=== PATIENT | male | born 1960 ===

== ENCOUNTER 2016-09-30 17:54 | Emergency (ER) | payer SELFPAY ==
[2016-09-30 18:02] VITALS: TEMP 98.5
[2016-09-30] MEDS ORDERED: Oxycodone/Acetaminophen 5/325 mg Tab PO STA (19:13)
[2016-09-30] MEDS ORDERED: Oxycodone/Acetaminophen 5/325 mg Tab ONE (19:14)
[2016-09-30 19:23] VITALS: PULSE 75; RESP 16
--- NOTE | 2016-09-30 20:00 | ED PDOC ---
HPI: General Adult Time Seen by Provider: 09/30/16 18:07 Chief Complaint (Nursing): Trauma Chief Complaint (Provider): Right hip pain s/p fall off ladder at work History Per: Patient History/Exam Limitations: no limitations Onset/Duration Of Symptoms: Hrs (since noon ) Have you had recent travel within the past 21 days to any of the following countries: [place], [place], [place] or [place]?: No Current Symptoms Are (Timing): Still Present Severity: Severe Pain Scale Rating Of: 9 Context: Pt states he fell off ladder right off his hip. Additional Complaint(s): Pt did not take medication for pain. No head injury. Past Medical History Reviewed: Historical Data, Nursing Documentation, Vital Signs Vital Signs: Last Vital Signs Temp 98.5 F 09/30/16 17:58 Pulse 75 09/30/16 19:22 Resp 16 09/30/16 19:22 BP 115/72 09/30/16 19:22 Pulse Ox 98 09/30/16 19:22 - Medical History PMH: No Chronic Diseases - Surgical History Surgical History: No Surg Hx - Family History Family History: States: Unknown Family Hx - Living Arrangements Living Arrangements: With Family - Social History Current smoker - smoking cessation education provided: No - Allergies Allergies/Adverse Reactions: Allergies Allergy/AdvReac Type Severity Reaction Status Date / Time No Known Allergies Allergy Verified 09/30/16 17:58 Review of Systems ROS Statement: Except As Marked, All Systems Reviewed And Found Negative Musculoskeletal: Positive for: Other Physical Exam - Reviewed Nursing Documentation Reviewed: Yes Vital Signs Reviewed: Yes - Physical Exam Appears: Positive for: Well, Non-toxic, No Acute Distress Head Exam: Positive for: ATRAUMATIC, NORMAL INSPECTION, NORMOCEPHALIC Skin: Positive for: Normal Color, Warm, DRY Eye Exam: Positive for: Normal appearance ENT: Positive for: Normal ENT Inspection Neck: Positive for: Normal, Painless ROM Cardiovascular/Chest: Positive for: Regular Rate, Rhythm Respiratory: Positive for: CNT, Normal Breath Sounds Gastrointestinal/Abdominal: Positive for: Normal Exam, Bowel Sounds, Soft. Negative for: Tenderness Back: Positive for: Normal Inspection, Decreased ROM (Right hip flexion), Other ((+) edema, (-) deformity) Extremity: Negative for: Normal ROM (Decreased right hip flexion due to pain ) Neurologic/Psych: Positive for: Alert, Oriented - ECG O2 Sat by Pulse Oximetry: 98 Pulse Ox Interpretation: Normal Medical Decision Making Medical Decision Making: Endorsed pending x-ray, urine and re-evaluation. Disposition - Clinical Impression Clinical Impression: Hip injury - Patient ED Disposition Is Patient to be Admitted: Transfer of Care - Disposition Disposition: Transfer of Care Disposition Time: 20:02 Condition: GOOD
--- NOTE | 2016-09-30 20:52 | ED PDOC ---
- ECG O2 Sat by Pulse Oximetry: 98 Medical Decision Making Medical Decision Making: Case endorsed to marine underwriter from JULIO CESAR Saavedra at 20:00 pending diagnostic review and re-eval HPI reviewed: HPI: General Adult Time Seen by Provider: 09/30/16 18:07 Chief Complaint (Nursing): Trauma Chief Complaint (Provider): Right hip pain s/p fall off ladder at work History Per: Patient History/Exam Limitations: no limitations Onset/Duration Of Symptoms: Hrs (since noon ) Have you had recent travel within the past 21 days to any of the following countries: [place], [place], [place] or [place]?: No Current Symptoms Are (Timing): Still Present Severity: Severe Pain Scale Rating Of: 9 Context: Pt states he fell off ladder right off his hip. Additional Complaint(s): Pt did not take medication for pain. No head injury. U.Dip (-) blood XR Hip: IMPRESSION: Mild degenerative changes No acute hip fracture detected Pt was medicated with 1 tab Percocet PO. On re-eval, pt reports pain continues, when trying to move. Pt rpeorts pain to lateral hip, site tender upon palpation. no ecchymosis or edema noted. FROM to right lower extremity and hip joint. Pt given 600 mg tab Motrin PO Pt educated on results and demonstrated full understanding. Pt on second re-eval doing well. Stable for discharge. Ambulating with steady gait Disposition - Clinical Impression Clinical Impression: Hip injury - POA Present On Arrival: None - Disposition Disposition: Routine/Home Disposition Time: 22:25 Condition: STABLE Instructions: Contusion in Adults (ED)
[2016-09-30 23:57] VITALS: BP 110/74; O2SAT 99
--- NOTE | 2016-10-01 08:18 | RAD ---
Indication: Fall, pain Right hip with pelvis Right femur Comparison: None available Findings: Coarse calcification/ossification adjacent to the right greater trochanter may be related to degenerative change or remote injury. No acute displaced fracture appreciated. No dislocation. Soft tissues appear unremarkable. No evidence of radiopaque foreign body. Impression: No acute displaced fracture or dislocation evident. If high clinical index of suspicion, suggest cross-sectional imaging for further evaluation. Otherwise, if symptoms persist or if there is continued clinical concern, x-ray follow-up in 7-10 days should be considered.
== END 2016-10-01 00:04 | disposition home or self-care (01) ==
LOC: H.ER 17:54
DX: S79.911A Unspecified injury of right hip, initial encounter (principal); W11.XXXA Fall on and from ladder, initial encounter; Y99.0 Civilian activity done for income or pay